=== PATIENT | male | born 1985 | race Caucasian/White ===

== ENCOUNTER 2020-02-24 15:14 | Inpatient (IN) | payer OTHER ==
--- NOTE | 2020-02-24 17:49 | HP ---
"COWS - Scale Resting Pulse: 0= [place] 80 or Below (Pupils = 4 mm) Sweatin=Flushed/Facial Moisture (Increased facial moisture) Restless Observation: 3= Extraneous Movement Pupil Size: 2= Moderately Dilated Bone or Joint Aches: 0= None Runny Nose/ Eye Tearin= Runny Nose/Eyes GI Upset > 30mins: 0= None Tremor Observation: 2= Slight Tremor Visible Yawning Observation: 1= 1-2x During Session Anxiety or Irritability: 1=Feels Anxious/Irritable Goose Flesh Skin: 0=Smooth Skin COWS Score: 13 CIWA Score - Admission Criteria OASAS Guidelines: Admission for Medically Managed Detox: Requires at least one of the followin. CIWA greater than 12 2. Seizures within the past 24 hours 3. Delirium tremens within the past 24 hours 4. Hallucinations within the past 24 hours 5. Acute intervention needed for co occurring medical disorder 6. Acute intervention needed for co occurring psychiatric disorder 7. Severe withdrawal that cannot be handled at a lower level of care (continued vomiting, continued diarrhea, abnormal vital signs) requiring intravenous medication and/or fluids 8. Admitting History and Physical - Smoking History Smoking history: Unknown if ever smoked Admission ROS [facility] Chief Complaint: Here because want to stop using and don't want to be on methadone. Allergies/Adverse Reactions: Allergies Allergy/AdvReac Type Severity Reaction Status Date / Time No Known Allergies Allergy Verified 02/24/20 18:34 History of Present Illness: 34 yo presents w/opioid withdrawal symptoms, seeking opioid and methadone detox. Denies overdoses or blackouts FLAKITO: 0.0 UTox: + THC/MOP/FEN/MTD Heroin use began at age [age]. Was using 2 bundles opiates/day nasally in addition to Methadone 70 mg. Stopped [facility] methadone program on 02/11/20 but states was in a rehab until 02/20 where he received 50 mg. Discharge letter from [facility] effective 02/23/20, presented. Marijuana use began at age 12. Currently 1 blunt/day. Denies current alcohol use. Stopped drinking 7 years ago. Past hx cocaine use. None in years. PMHx: Epilepsy as a child, Asthma - no recent exacerbation MHHx: Occ Anxiety. Denies thoughts of harming self. Difficulty sleeping - wants to try melatonin SHx: Domiciled. Employed. Denies current legal issues Search Terms: Gustavo Rock, 1985 Search Date: 02/24/2020 18:01:06 PM The Drug Utilization Report below displays all of the controlled substance prescriptions, if any, that your patient has filled in the last twelve months. The information displayed on this report is compiled from pharmacy submissions to the Department, and accurately reflects the information as submitted by the pharmacies. This report was requested by: Praveena Ulloa | Reference #: [id number] There are no results for the search terms that you entered. Search Terms: Gustavo Rock, 1985 Search Date: Feb 24, 2020 6:15:23 PM States Searched: [place] The Drug Utilization Report below displays the controlled substance prescriptions, if any, that were dispensed in the indicated state(s). The information displayed on this report is compiled from requests submitted to other states' PMPs, and accurately reflects the information as returned by them. Blank augustin indicate data not provided by other state. This report was requested by: Praveena Ulloa | Reference #: [id number] There are no results for the search terms that you entered. Exam Limitations: No Limitations - Ebola screening Have you traveled outside of the country in the last 21 days: No (States COVID negative 1 wk/ago) Have you had contact with anyone from an Ebola affected area: No Have you been sick,other than usual withdrawal symptoms: No Do you have a fever: No - Review of Systems Constitutional: Diaphoresis (Increased facial), Weight Stable EENT: reports: Nose Congestion, Dental Problems (c/o toothache.) Respiratory: reports: No Symptoms reported Cardiac: reports: No Symptoms Reported GI: reports: No Symptoms Reported : reports: No Symptoms Reported Musculoskeletal: reports: No Symptoms Reported Integumentary: reports: No Symptoms Reported Neuro: reports: Tremors Endocrine: reports: No Symptoms Reported Hematology: reports: No Symptoms Reported Psychiatric: reports: Mood/Affect Appropiate, Orientated x3, Agitated, Anxious Patient History - PPD History Previous Implant?: Yes Documented Results: Negative w/proof Implanted On Prior [facility] Admission?: No Date: 02/20/20 (Copy placed in chart) PPD to be Administered?: No - Smoking Cessation Smoking history: Current every day smoker Have you smoked in the past 12 months: Yes Aproximately how many cigarettes per day: 20 Hx Chewing Tobacco Use: No Initiated information on smoking cessation: Yes 'Breaking Loose' booklet given: 02/24/20 - Substance & Tx. History Hx Alcohol Use: Yes (7 years ago) Hx Substance Use: Yes Substance Use Type: Heroin, Marijuana, Opiates Hx Substance Use Treatment: Yes (detox, rehab, past MMTP) - Substances abused Heroin Frequency: Daily Amount used: 2 bundles Age of first use: 27 Date of last use: 02/11/20 Other Other (specify): Methadone Substance route: Oral Frequency: Daily Amount used: 50 Age of first use: 34 Date of last use: 02/21/20 Admission Physical Exam [facility] - Physical General Appearance: Yes: Nourished, Mild Distress, Tremorous, Sweating (Increased facial moisture), Anxious HEENTM: Yes: EOMI, Hearing grossly Normal, Normocephalic, Normal Voice, SAFIA (Pupils = 4 mm), Pharynx Normal, Rhinorrhea Respiratory: Yes: Lungs Clear, Normal Breath Sounds, No Respiratory Distress Neck: Yes: No masses,lesions,Nodules, Supple Breast: Yes: Breast Exam Deferred Cardiology: Yes: Regular Rhythm, Regular Rate (HR: 76), S1, S2, Other (Abnormal EKG reviewed w/ patient.) Abdominal: Yes: Non Tender, Flat, Soft, Increased Bowel Sounds Genitourinary: Yes: Within Normal Limits Back: Yes: Normal Inspection Musculoskeletal: Yes: full range of Motion, Gait Steady Extremities: Yes: Normal Capillary Refill, Normal Range of Motion, Tremors 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, Fully Oriented, Alert, Motor Strength 5/5, Normal Mood/Affect Integumentary: Yes: Normal Color, Warm Lymphatic: Yes: Within Normal Limits - Diagnostic (1) Opioid dependence with withdrawal Current Visit: Yes Status: Acute (2) Cannabis dependence, uncomplicated Current Visit: Yes Status: Chronic (3) History of asthma Current Visit: Yes Status: Inactive (4) Nicotine dependence, unspecified, uncomplicated Current Visit: Yes Status: Chronic Qualifiers: Nicotine product type: cigarettes Qualified Code(s): F17.210 - Nicotine dependence, cigarettes, uncomplicated Cleared for Admission [facility] - Detox or Rehab [facility] Level of Care: Medically Managed Detox Regimen/Protocol: Methadone Claeared for Rehab Admission: No Breathalyzer - Breathalyzer Breathalyzer: 0 Urine Drug Screen - Test Device Lot number: [id number] Expiration date: 10/11/21 - Control Is test valid?: Yes - Results Drug screen NEGATIVE: No (O2 99) Urine drug screen results: THC-Marijuana, FEN-Fentanyl, MOP-Opiates, MTD- Methadone Inpatient Rehab Admission - Rehab Decision to Admit Inpatient rehab admission?: No"
[2020-02-24 18:46] VITALS: BMI 26.2
[2020-02-24] MEDS ORDERED: MAGNESIUM HYDROX 2400MG/30ML ORAL SUSPENSION 30 ML CUP PO PRN (18:54)
[2020-02-24] MEDS ORDERED: MAGNESIUM CITRATE 300 ML BOTTLE PO PRN (18:54)
[2020-02-24] MEDS ORDERED: MENTHOL/PHENOL 1 EACH UD MM PRN (18:54)
[2020-02-24] MEDS ORDERED: ACETAMINOPHEN 325 MG TABLET (FP) PO PRN (18:54)
[2020-02-24] MEDS ORDERED: MAG HYDROX/AL HYDROX/SIMETH 30 ML UNIT-DOSE CUP PO PRN (18:54)
[2020-02-24] MEDS ORDERED: BISMUTH SUBSALICYLATE 524 MG/30 ML UD PO PRN (18:54)
[2020-02-24] MEDS ORDERED: cloNIDine HCL 0.1 MG TABLET PO PRN (18:54)
[2020-02-24] MEDS ORDERED: ONDANSETRON *ODT* 4 MG TABLET SL ONE (19:30)
[2020-02-24] MEDS ORDERED: METHADONE HCL 10 MG TABLET (FOR DETOX USE ONLY) PO ONE (19:30)
[2020-02-24] MEDS: IBUPROFEN 400 MG TABLET (FP) PO PRN (19:55)
[2020-02-24] MEDS: MELATONIN 5 MG TABLETS PO SCH (22:58)
[2020-02-24] MEDS: THIAMINE HCL 100 MG TABLET (FP) PO SCH (22:58)
[2020-02-25] MEDS: IBUPROFEN 400 MG TABLET (FP) PO PRN ×3 (06:23→19:54)
[2020-02-25] MEDS: METHOCARBAMOL 500 MG TABLET PO PRN ×2 (06:26→12:45)
[2020-02-25] MEDS: NICOTINE POLACRILEX 2 MG GUM BUC PRN ×4 (08:15→17:31)
[2020-02-25] MEDS ORDERED: PRENATAL VITAMINS W/ FOLIC ACID TABLET (FP) PO SCH (10:00)
[2020-02-25] MEDS ORDERED: NICOTINE 21 MG/24 HOURS TOPICAL PATCH TD SCH (10:00)
[2020-02-25] MEDS ORDERED: METHADONE (DETOX) 20 MG, METHADONE (DETOX) 5 MG PO ONE (10:00)
[2020-02-25] MEDS ORDERED: METHADONE HCL 10 MG TABLET (FOR DETOX USE ONLY) ONE (10:08)
[2020-02-25] MEDS ORDERED: METHADONE HCL 5 MG TABLET (FOR DETOX USE ONLY) ONE (10:09)
[2020-02-25] MEDS: ACETAMINOPHEN 325 MG TABLET (FP) PO PRN ×2 (10:26→17:29)
--- NOTE | 2020-02-25 10:43 | PN ---
S COWS - Scale Resting Pulse: 0= [place] 80 or Below Sweatin= Beads of Sweat on Face Restless Observation: 1= Difficult to Sit Still Pupil Size: 0= Normal to Room Light Bone or Joint Aches: 2= Severe Diffuse Aches Runny Nose/ Eye Tearin= None GI Upset > 30mins: 0= None Tremor Observation of Outstretched Hands: 0= None Yawning Observation: 1= 1-2x During Session Anxiety or Irritability: 2=Irritable/Anxious Goose Flesh Skin: 0=Smooth Skin COWS Score: 9 S Progress Note (SOAP) Subjective: c/o interrupted sleep, anxiety, irritability, and muscle aches. Objective: 02/25/20 Laboratory Last Values WBC 8.6 K/mm3 (4.0-10.0) 02/25/20 07:15 RBC 4.14 M/mm3 (4.00-5.60) 02/25/20 07:15 Hgb 13.5 GM/dL (11.7-16.9) 02/25/20 07:15 Hct 39.9 % (35.4-49) 02/25/20 07:15 MCV 96.5 fl (80-96) H 02/25/20 07:15 MCH 32.7 pg (25.7-33.7) 02/25/20 07:15 MCHC 33.9 g/dl (32.0-35.9) 02/25/20 07:15 RDW 13.0 % (11.9-15.9) 02/25/20 07:15 Plt Count 239 K/MM3 (134-434) 02/25/20 07:15 MPV 9.0 fl (7.5-11.1) 02/25/20 07:15 Sodium 140 mmol/L (136-145) 02/25/20 07:15 Potassium 3.8 mmol/L (3.5-5.1) 02/25/20 07:15 Chloride 105 mmol/L (98-107) 02/25/20 07:15 Carbon Dioxide 29 mmol/L (21-32) 02/25/20 07:15 Anion Gap 6 MMOL/L (8-16) L 02/25/20 07:15 BUN 8.4 mg/dL (7-18) 02/25/20 07:15 Creatinine 0.6 mg/dL (0.55-1.3) 02/25/20 07:15 Est GFR (CKD-EPI)AfAm 150.97 02/25/20 07:15 Est GFR (CKD-EPI)NonAf 130.26 02/25/20 07:15 Random Glucose 92 mg/dL (74-106) 02/25/20 07:15 Calcium 8.7 mg/dL (8.5-10.1) 02/25/20 07:15 Total Bilirubin 0.4 mg/dL (0.2-1) 02/25/20 07:15 AST 12 U/L (15-37) L 02/25/20 07:15 ALT 19 U/L (13-61) 02/25/20 07:15 Alkaline Phosphatase 78 U/L (45-117) 02/25/20 07:15 Total Protein 6.8 g/dl (6.4-8.2) 02/25/20 07:15 Albumin 3.6 g/dl (3.4-5.0) 02/25/20 07:15 Syphilis Serology Non-reactive (NONREACTIVE) 02/25/20 07:15 COVID-19 (MILKA) Not detected (Not Detected) 02/24/20 22:30 Labs noted. 02/25/20 Assessment: 02/25/20. AOX3 and in no acute respiratory distress. Full ROM, ambulating in the unit. Withdrawal symptoms. Plan: continue detox.
[2020-02-25 12:22] LABS: HEMATOCRIT 39.9 % (35.4-49); HEMOGLOBIN 13.5 GM/dL (11.7-16.9); MCH 32.7 pg (25.7-33.7); MCHC 33.9 g/dl (32.0-35.9); MEAN CELL VOLUME 96.5 fl (80-96); PLATELET COUNT 239 K/MM3 (134-434); RBC 4.14 M/mm3 (4.00-5.60); WHITE BLOOD COUNT 8.6 K/mm3 (4.0-10.0)
[2020-02-25 12:28] LABS: ALBUMIN 3.6 g/dl (3.4-5.0); BILIRUBIN,TOTAL 0.4 mg/dL (0.2-1); BLOOD UREA NITROGEN 8.4 mg/dL (7-18); CALCIUM 8.7 mg/dL (8.5-10.1); CREATININE 0.6 mg/dL (0.55-1.3); POTASSIUM 3.8 mmol/L (3.5-5.1); TOT PROT 6.8 g/dl (6.4-8.2)
--- NOTE | 2020-02-25 14:24 | CONSULT ---
[facility] Psychiatric Consult - Data Date of interview: 02/25/20 Admission source: [facility] Identifying data: First visit to [facility] and admission to [address] [place] [address] for this 34 y/o male self-referred for detoxification treatment. LIDIA issues : opioid, cannabis, nicotine. Patient is single, father of four, domiciled and currently employed. Substance Abuse History: Discussed with the patient. LIDIA profile as follows : Smoking history: Current every day smoker. Have you smoked in the past 12 months: Yes. Aproximately how many cigarettes per day: 20. Hx Chewing Tobacco Use: No. Initiated information on smoking cessation: Yes. 'Breaking Loose' villalta klet given: 02/24/20. - Substance & Tx. History. Hx Alcohol Use: Yes (7 years ago). Hx Substance Use: Yes. Substance Use Type: Heroin, Marijuana, Opiates. Hx Substance Use Treatment: Yes (detox, rehab, past MMTP). - Substances abused. Heroin. Frequency: Daily. Amount used: 2 bundles. Age of first use: 27. Date of last use: 02/11/20. Other. Other (specify): Methadone. Substance route: Oral. Frequency: Daily. Amount used: 50. Age of first use: 34. Date of last use: 02/21/20. Dropped out of methadone maintenance (used to be on 70 mg/day). Medical History: Medical history is remarkable for seizure disorder (since childhood). Psychiatric History: Patient denies history of psychiatric hospitalizations, OPD care or suicide attempts. Physical/Sexual Abuse/Trauma History: Patient denies. Additional Comment: Urine drug screen results: THC-Marijuana, FEN-Fentanyl, MOP-Opiates, MTD-Methadone. Noted. Mental Status Exam - Mental Status Exam Alert and Oriented to: Time, Place, Person Cognitive Function: Good Patient Appearance: Well Groomed Mood: Hopeful, Euthymic Affect: Appropriate, Normal Range Patient Behavior: Appropriate, Cooperative Speech Pattern: Clear, Appropriate Voice Loudness: Normal Thought Process: Intact, Goal Oriented Thought Disorder: Not Present Hallucinations: Denies Suicidal Ideation: Denies Homicidal Ideation: Denies Insight/Judgement: Poor Sleep: Poorly, Difficulty falling asleep Appetite: Good Gait/Station: Normal Psychiatric Findings - Problem List ([place] 1, 2,3) (1) Opioid dependence with withdrawal Current Visit: Yes Status: Acute (2) Cannabis dependence, uncomplicated Current Visit: Yes Status: Chronic (3) Nicotine dependence, unspecified, uncomplicated Current Visit: Yes Status: Chronic Qualifiers: Nicotine product type: cigarettes Qualified Code(s): F17.210 - Nicotine dependence, cigarettes, uncomplicated (4) Insomnia Current Visit: Yes Status: Chronic - Initial Treatment Plan Initial Treatment Plan: Psychoeducation. Sleep hygiene. Detoxification. Insomnia is addressed with suvorexant 10 mg po hs prn. Side effects/benefits discussed with the patient. Consent (verbal) granted. Observation.
[2020-02-25] MEDS ORDERED: SUVOREXANT 10 MG TABLET PO PRN (22:00)
[2020-02-25] MEDS: THIAMINE HCL 100 MG TABLET (FP) PO SCH (22:05)
[2020-02-25] MEDS: MELATONIN 5 MG TABLETS PO SCH (22:06)
[2020-02-26] MEDS: NICOTINE POLACRILEX 2 MG GUM BUC PRN ×2 (01:22→07:10)
[2020-02-26] MEDS: METHOCARBAMOL 500 MG TABLET PO PRN ×2 (01:25→07:09)
[2020-02-26] MEDS: IBUPROFEN 400 MG TABLET (FP) PO PRN (01:25)
[2020-02-26] MEDS: ACETAMINOPHEN 325 MG TABLET (FP) PO PRN (05:59)
[2020-02-26 06:55] VITALS: BP 116/76; PULSE 61; TEMP 97.8
[2020-02-26] MEDS ORDERED: NICOTINE POLACRILEX 2 MG GUM BUC PRN (07:13)
[2020-02-26] MEDS ORDERED: NICOTINE POLACRILEX 2 MG GUM BUC ONE (07:15)
--- NOTE | 2020-02-26 08:24 | DS ---
[facility] Detox Discharge Summary Admission Date: 02/24/20 Discharge Date: 02/26/20 - History Present History: Opioid Dependence Additional Comments: 34 years old male was admitted on 02/24/20 for opiate withdrawal sx management treated with methadone detox regiment seen by psychiatrist tatyana bee for insomnia mr medina states that he was at "the detox for 13 days and was out on 02/21/20" General Appearance: Yes: Nourished, no Distress, mild Tremorous, not Sweating, less Anxious HEENTM: Yes: EOMI, Hearing grossly Normal, Normocephalic, Normal Voice, SAFIA (Pupils = 4 mm), Pharynx Normal, Rhinorrhea Respiratory: Yes: Lungs Clear, Normal Breath Sounds, No Respiratory Distress Neck: Yes: No masses,lesions,Nodules, Supple Breast: Yes: Breast Exam Deferred Cardiology: Yes: Regular Rhythm, Regular Rate (HR: 76), S1, S2, Other (Abnormal EKG reviewed w/ patient.) Abdominal: Yes: Non Tender, Flat, Soft, Increased Bowel Sounds Genitourinary: Yes: Within Normal Limits Back: Yes: Normal Inspection Musculoskeletal: Yes: full range of Motion, Gait Steady Extremities: Yes: Normal Capillary Refill, Normal Range of Motion, Tremors 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, Fully Oriented, Alert, Motor Strength 5/5, Normal Mood/Affect Integumentary: Yes: Normal Color, Warm Lymphatic: Yes: Within Normal Limits Pertinent Past History: time for discharge 51 minutes treatment team met with mr medina to discuss benefits of methadone regiment completion mr medina insists to leave the detox today that he prefers to returning to his methadone maintenance program for behavior and psychosocial therapies - Physical Exam Results Vital Signs: Vital Signs Temperature 97.8 F 02/26/20 05:49 Pulse Rate 61 02/26/20 05:49 Respiratory Rate 16 02/26/20 05:49 Blood Pressure 116/76 02/26/20 05:49 O2 Sat by Pulse Oximetry (%) 99 02/26/20 05:49 Pertinent Admission Physical Exam Findings: opiate withdrawal Laboratory Tests 02/24/20 02/25/20 02/25/20 22:30 07:15 07:15 WBC 8.6 RBC 4.14 Hgb 13.5 Hct 39.9 MCV 96.5 H MCH 32.7 MCHC 33.9 RDW 13.0 Plt Count 239 MPV 9.0 Sodium 140 Potassium 3.8 Chloride 105 Carbon Dioxide 29 Anion Gap 6 L BUN 8.4 Creatinine 0.6 Est GFR (CKD-EPI)AfAm 150.97 Est GFR (CKD-EPI)NonAf 130.26 Random Glucose 92 Calcium 8.7 Total Bilirubin 0.4 AST 12 L ALT 19 Alkaline Phosphatase 78 Total Protein 6.8 Albumin 3.6 Syphilis Serology COVID-19 (MILKA) Not detected 02/25/20 07:15 WBC RBC Hgb Hct MCV MCH MCHC RDW Plt Count MPV Sodium Potassium Chloride Carbon Dioxide Anion Gap BUN Creatinine Est GFR (CKD-EPI)AfAm Est GFR (CKD-EPI)NonAf Random Glucose Calcium Total Bilirubin AST ALT Alkaline Phosphatase Total Protein Albumin Syphilis Serology Non-reactive COVID-19 (MILKA) lab noted - Treatment Hospital Course: Detox Protocol Followed, Detoxed Safely, Responded well, Discharged Condition Good, Rehab Referral Accepted Patient has Accepted a Rehab Referral to: [facility] methadone maintenance [facility] - Medication Discharge Medications: Ambulatory Orders NK [No Known Home Medication] 02/24/20 - Diagnosis (1) Opioid dependence with withdrawal Status: Acute (2) Nicotine dependence, unspecified, uncomplicated Status: Acute Qualifiers: Nicotine product type: cigarettes Qualified Code(s): F17.210 - Nicotine dependence, cigarettes, uncomplicated - AMA Did Patient Leave Against Medical Advice: No COWS (PN) - Opiate Withdrawal Resting Pulse: 0= [place] 80 or Below Sweatin= No chills or Flushing Restless Observation: 0= Sits Still Pupil Size: 0= Normal to Room Light Bone or Joint Aches: 1= Mild Discomfort Runny Nose/ Eye Tearin= None GI Upset > 30mins: 1= Stomach Cramp Tremor Observation of Outstretched Hands: 1= Tremor [place], Not Seen Yawning Observation: 0= None Anxiety or Irritability: 1=Feels Anxious/Irritable Goose Flesh Skin: 0=Smooth Skin COWS Score: 4
[2020-02-26] MEDS ORDERED: METHADONE HCL 10 MG TABLET (FOR DETOX USE ONLY) PO ONE (10:00)
[2020-02-27] MEDS ORDERED: METHADONE (DETOX) 10 MG, METHADONE (DETOX) 5 MG PO ONE (10:00)
--- NOTE | 2020-02-27 18:28 | EKG ---
Test Reason : Blood Pressure : / mmHG Vent. Rate : 082 BPM Atrial Rate : 082 BPM P-R Int : 170 ms QRS Dur : 090 ms QT Int : 390 ms P-R-T Axes : 061 037 034 degrees QTc Int : 455 ms NORMAL SINUS RHYTHM NONSPECIFIC T WAVE ABNORMALITY ABNORMAL ECG NO PREVIOUS ECGS AVAILABLE Confirmed by SHANTHI BACON MD ([id number]) on 02/27/2020 6:28:14 PM Referred By: Confirmed By:SHANTHI BACON MD
[2020-02-28] MEDS ORDERED: METHADONE HCL 10 MG TABLET (FOR DETOX USE ONLY) PO ONE (10:00)
[2020-02-29] MEDS ORDERED: METHADONE HCL 5 MG TABLET (FOR DETOX USE ONLY) PO ONE (06:00)
== END 2020-02-26 09:18 | disposition home or self-care (01) | DRG 773 ==
LOC: YASAS 15:14 → Y3N 17:58
PROVIDERS: ADMIT Allergy & Immunology; ATTEND Allergy & Immunology
PROC: HZ2ZZZZ Detoxification Services for Substance Abuse Treatment (ICD-10-PCS; principal; 2020-02-24)
DX: F11.23 Opioid dependence with withdrawal (principal); F12.20 Cannabis dependence, uncomplicated; F17.210 Nicotine dependence, cigarettes, uncomplicated; G47.00 Insomnia, unspecified; G40.909 Epilepsy, unspecified, not intractable, without status epilepticus; R94.31 Abnormal electrocardiogram [ECG] [EKG]; Z87.09 Personal history of other diseases of the respiratory system
CPT/HCPCS: 36415; 80053; 85027; 86780; 93005; 93010; J0735; U0003

== ENCOUNTER 2023-01-24 10:19 | Emergency (ER) | payer OTHER ==
[2023-01-24] MEDS ORDERED: carBAMazepine 200 MG TABLET PO ONE (10:28)
[2023-01-24] MEDS ORDERED: carBAMazepine 200 MG TABLET ONE (10:30)
[2023-01-24 10:51] VITALS: RESP 18; BMI 27.1
[2023-01-24 11:37] VITALS: BP 125/78; PULSE 82; TEMP 98
== END 2023-01-24 11:37 | disposition home or self-care (01) ==
LOC: JER 10:19
DX: R56.9 Unspecified convulsions (principal); R25.1 Tremor, unspecified; V47.5XXA Car driver injured in collision with fixed or stationary object in traffic accident, initial encounter; Y92.410 Unspecified street and highway as the place of occurrence of the external cause
CPT/HCPCS: 82962; 93005; 93010; 99283-25

== ENCOUNTER 2023-06-03 13:33 | Inpatient (IN) | payer OTHER ==
[2023-06-03 14:08] VITALS: BMI 24.2
[2023-06-03] MEDS ORDERED: DICYCLOMINE HCL 10 MG CAPSULE PO PRN (17:03)
[2023-06-03] MEDS ORDERED: BENZONATATE 200 MG CAPSULE PO PRN (17:03)
[2023-06-03] MEDS ORDERED: MAGNESIUM HYDROX 2400MG/30ML ORAL SUSPENSION 30 ML CUP PO PRN (17:03)
[2023-06-03] MEDS ORDERED: hydrOXYzine PAMOATE 25 MG CAPSULE (FP) PO PRN (17:03)
[2023-06-03] MEDS ORDERED: LOPERAMIDE HCL 2 MG CAPSULE PO PRN (17:03)
[2023-06-03] MEDS ORDERED: IBUPROFEN 400 MG TABLET (FP) PO PRN (17:03)
[2023-06-03] MEDS ORDERED: BENZOCAINE/MENTHOL (CHLORASEPTIC ) LOZENGE MM PRN (17:03)
[2023-06-03] MEDS ORDERED: ACETAMINOPHEN 325 MG TABLET (FP) PO PRN (17:03)
[2023-06-03] MEDS ORDERED: POLYETHYLENE GLYCOL (HEALTHYLAX) 3350 17 GM PACKET PO PRN (17:03)
[2023-06-03] MEDS ORDERED: MAG HYDROX/AL HYDROX/SIMETH 30 ML UNIT-DOSE CUP PO PRN (17:03)
[2023-06-03] MEDS ORDERED: ONDANSETRON *ODT* 4 MG TABLET SL PRN (17:03)
[2023-06-03] MEDS ORDERED: guaiFENesin 600 MG TABLET.ER (FP) PO PRN (17:03)
[2023-06-03] MEDS ORDERED: BISMUTH SUBSALICYLATE 524 MG/30 ML PO PRN (17:03)
[2023-06-03] MEDS ORDERED: IBUPROFEN 600 MG TABLET (FP) PO PRN (17:03)
[2023-06-03] MEDS ORDERED: NALOXONE HCL (KLOXXADO) 8 MG SPRAY NS PRN (17:03)
[2023-06-03] MEDS ORDERED: NALOXONE HCL 0.4 MG/ML VIAL IM PRN (17:03)
[2023-06-03] MEDS ORDERED: ALBUTEROL SO4 HFA INHALER IH PRN (19:21)
[2023-06-03] MEDS ORDERED: THIAMINE HCL 100 MG TABLET (FP) PO SCH (22:00)
[2023-06-03] MEDS ORDERED: MELATONIN 5 MG TABLETS PO SCH (22:00)
[2023-06-03] MEDS: METHOCARBAMOL 500 MG TABLET PO PRN (22:16)
[2023-06-04] MEDS: METHOCARBAMOL 500 MG TABLET PO PRN (05:38)
[2023-06-04] MEDS ORDERED: methaDONE HCL 10 MG TABLET (FOR DETOX USE ONLY) PO ONE (09:20)
[2023-06-04] MEDS ORDERED: cloNIDine HCL 0.1 MG TABLET PO PRN (09:20)
[2023-06-04] MEDS ORDERED: diazePAM 5 MG TABLET PO PRN (09:21)
[2023-06-04] MEDS ORDERED: PRENATAL VITAMINS W/ FOLIC ACID TABLET (FP) PO SCH (10:00)
[2023-06-04 10:33] LABS: HEMOGLOBIN 13.8 GM/dL (11.7-16.9); MCHC 34.4 g/dl (32.0-35.9); MEAN CELL VOLUME 92.9 fl (80-96); MEAN PLT VOLUME 8.2 fl (7.5-11.1); PLATELET COUNT 272 10^3/uL (134-434); RBC 4.31 M/mm3 (4.00-5.60); RDW 12.8 % (11.9-15.9); WHITE BLOOD COUNT 7.5 K/mm3 (4.0-10.0)
[2023-06-04 10:47] LABS: CHLORIDE 106 mmol/L (98-107); POTASSIUM 4.2 mmol/L (3.5-5.1); SODIUM 137 mmol/L (136-145)
[2023-06-04 10:50] LABS: CALCIUM 8.9 mg/dL (8.5-10.1)
[2023-06-04 10:51] LABS: ALBUMIN 3.9 g/dl (3.4-5.0); ANION GAP 2 mmol/L (4-13); CO2 30 mmol/L (21-32); GLUCOSE,RANDOM 89 mg/dL (74-106)
[2023-06-04 10:54] LABS: CREATININE 0.6 mg/dL (0.55-1.3); SGOT/AST 12 U/L (15-37); SGPT/ALT 21 U/L (13-61)
[2023-06-04 10:56] LABS: BILIRUBIN,TOTAL 0.6 mg/dL (0.2-1); TOT PROT 7.3 g/dl (6.4-8.2)
[2023-06-04 10:57] LABS: ALK PHOS 71 U/L (45-117)
[2023-06-04 11:39] VITALS: RESP 18
[2023-06-04] MEDS ORDERED: NICOTINE POLACRILEX 4 MG GUM BUC PRN (11:48)
[2023-06-04 13:23] VITALS: BP 122/81; PULSE 87; TEMP 97.8
[2023-06-04 16:45] LABS: HIV INTERPRETATION NEGATIVE (NEGATIVE)
[2023-06-06] MEDS ORDERED: methaDONE HCL 10 MG TABLET (FOR DETOX USE ONLY) PO ONE (10:00)
[2023-06-08] MEDS ORDERED: methaDONE HCL 10 MG TABLET (FOR DETOX USE ONLY) PO ONE (10:00)
== END 2023-06-04 14:33 | disposition left against medical advice (07) | DRG 770 ==
LOC: YASAS 13:33 → Y3N 17:16
PROVIDERS: ADMIT Allergy & Immunology; ATTEND Surgery
PROC: HZ2ZZZZ Detoxification Services for Substance Abuse Treatment (ICD-10-PCS; principal; 2023-06-03)
DX: F11.23 Opioid dependence with withdrawal (principal); F12.20 Cannabis dependence, uncomplicated; F17.210 Nicotine dependence, cigarettes, uncomplicated
CPT/HCPCS: 36415; 80053; 80307; 85027; 86780; 87389; 87635; 87811

== ENCOUNTER 2023-12-26 14:10 | Emergency (ER) | payer OTHER ==
[2023-12-26 14:24] VITALS: BP 140/82; PULSE 106; RESP 20; TEMP 98; BMI 26.7
[2023-12-26] MEDS: BUPRENORPHINE 8 MG TAB.SUBL SL ONE (15:11)
== END 2023-12-26 15:24 | disposition home or self-care (01) ==
LOC: JERFT 14:10
DX: Z76.0 Encounter for issue of repeat prescription (principal)
CPT/HCPCS: 99281-25